=== PATIENT | male | born 1990 | race Caucasian/White ===

== ENCOUNTER 2025-02-18 01:55 | Emergency (ER) | payer MEDICAID, OTHER ==
[~2025-02-18] VITALS: Ht 175.3 cm; Wt 72.7 kg
[2025-02-18 03:45] LABS: Hematocrit 43.9 % (41.0-53.0); Hemoglobin 15.1 g/dL (13.5-17.5); Mean Corpuscular Hemoglobin 31.4 pg (28.0-32.0); Mean Corpuscular Volume 91.5 fL (80.0-100.0); Nucleated Red Blood Cells % 0.1 %
[2025-02-18 03:54] LABS: Alkaline Phosphatase 69 U/L (46-116)
[2025-02-18 03:55] LABS: Alanine Aminotransferase 16 U/L (7-40); Albumin 4.7 g/dL (3.2-4.8); Anion Gap 9 (5-15); BUN/Creatinine Ratio 16.0 (10.0-20.0); Bilirubin, Total 0.4 mg/dL (0.2-1.0); Blood Urea Nitrogen 20 mg/dL (9-23); Calcium 8.9 mg/dL (8.7-10.4); Carbon Dioxide 27 mmol/L (20-31); Potassium 3.5 mmol/L (3.5-5.1); Sodium 143 mmol/L (136-145); Total Protein 7.0 g/dL (5.7-8.2)
[2025-02-18 04:24] LABS: Chloride 107 mmol/L (98-107); Glucose 121 mg/dL (74-106)
--- NOTE | 2025-02-18 04:24 | ECG ---
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
--- NOTE | 2025-02-18 04:37 | DVH ---
EXAM: CT HEAD WITHOUT CONTRAST INDICATION: BELTRE, dizzy TECHNIQUE: CT of the head without intravenous contrast. Radiation Dose : 1. Head: CT Dose: CTDI volume is 58.96 mGy. Dose-length product is 1161.78 mGy*cm The dose indicators for CT are the volume Computed Tomography (CT) Dose Index (CTDIvol) and the Dose Length Product (DLP), and are measured in units of mGy and mGy-cm, respectively. These indicators are not patient dose, but values generated from the CT scanner acquisition factors. The report includes radiation exposure data for exposures received during this examination. COMPARISON: None FINDINGS: There is no evidence of acute intracranial hemorrhage, extra-axial collection, mass effect, midline s hift, herniation or hydrocephalus. The ventricles, sulci and cisterns are age appropriate. The alaniz-white differentiation is intact. The visualized paranasal sinuses and mastoid air cells are clear. The surrounding soft tissues and osseous structures are unremarkable. IMPRESSION: 1. No acute intracranial abnormality. Radiation optimization: All CT scans at this facility use at least one of these dose optimization vaishali hniques: automated exposure control mA and/or kV adjustment per patient size (includes targeted exam s where dose is matched to clinical indication) or iterative reconstruction.
--- NOTE | 2025-02-18 04:47 | DVH ---
CHEST RADIOGRAPH Indication: syncope episode after getting arrested. Technique: Single frontal view of the chest was obtained COMPARISON: None FINDINGS: Lines and Tubes: None Lungs: Clear. The patient is large and partially obscures the right apex and the patient is slightly rotated to the right. Pleura: No effusion. No pneumothorax. Cardiomediastinal contours: Unremarkable Bones: Unremarkable IMPRESSION: 1. No acute disease.
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
[2025-02-18 06:05] LABS: Urine Protein, UAD 1+ (Negative)
[2025-02-18 06:15] VITALS: BP 142/86; PULSE 72; RESP 18; TEMP 98.4; O2SAT 98
[2025-02-18 06:27] LABS: Cannabinoid Screen, Urine Pos (NEGATIVE)
[2025-02-18] MEDS: SODIUM CHLORIDE 0.9% 1,000 ML IV ONE (06:27)
[2025-02-18 06:33] LABS: Amphetamine Screen, Urine Pos (NEGATIVE); Barbiturate Scree,Urine Neg (NEGATIVE); Benzodiazephine Screen, Urine Neg (NEGATIVE); Cocaine Screen, Urine Neg (NEGATIVE); Opiate Scree,Urine Neg (NEGATIVE); Phencyclidine Screen, Urine Neg (NEGATIVE)
== END 2025-02-18 06:37 ==
LOC: EDBD 01:55 → ER 01:55
DX: S09.90XA Unspecified injury of head, initial encounter (principal); F31.9 Bipolar disorder, unspecified; Z98.890 Other specified postprocedural states; Z79.899 Other long term (current) drug therapy; Y35.811A Legal intervention involving manhandling, law enforcement official injured, initial encounter; Y93.89 Activity, other specified; Y92.89 Other specified places as the place of occurrence of the external cause; Y99.8 Other external cause status
CPT/HCPCS: 36415; 70450; 71045; 80053; 80307; 80320; 81001; 82947; 83605; 85025; 93005